=== PATIENT | female | born 1950 | race Caucasian/White ===

== ENCOUNTER 2019-01-23 11:14 | Emergency (ER) | payer OTHER ==
[~2019-01-23] VITALS: Ht 160 cm; Wt 63.5 kg
[2019-01-23] MEDS ORDERED: LISINOPRIL10 MG PO (11:29)
[2019-01-23] MEDS ORDERED: NORVASC5 MG PO (11:29)
[2019-01-23] MEDS ORDERED: CYMBALTA20 MG PO (11:30)
[2019-01-23] MEDS ORDERED: NEXIUM40 MG PO (11:30)
[2019-01-23] MEDS ORDERED: TOPROL XL100 MG PO (11:30)
[2019-01-23 11:47] LABS: ABSOLUTE BASOPHILS 0.1 thou/uL (0.0-0.2); ABSOLUTE EOSINOPHILS 0.4 thou/uL (0.0-0.7); ABSOLUTE LYMPHOCYTES 2.1 thou/uL (0.8-5.3); ABSOLUTE MONOCYTES 0.5 thou/uL (0.0-1.2); ABSOLUTE NEUTROPHILS 4.4 thou/uL (1.6-8.1); BASOPHILS 1.1 %; EOSINOPHILS 5.1 %; HEMATOCRIT 37.6 % (37.0-47.0); HEMOGLOBIN 12.4 gm/dL (12.0-15.0); LYMPHOCYTES 27.5 %; MCH 28.8 pg (26.0-34.0); MCV 87.4 fL (80.0-100.0); MONOCYTES 7.1 %; MPV 8.1 fl. (7.2-11.1); NUCLEATED RBCS 0 /100WBC; PLATELET COUNT* 390 thou/uL (150-400); POLYS 59.2 %; RDW-CV 13.9 % (10.5-14.5); WBC 7.5 thou/uL (4.0-11.0)
[2019-01-23 12:05] LABS: CALCIUM 9.4 mg/dL (8.5-10.1); CREATININE 1.1 mg/dL (0.6-1.3)
[2019-01-23 12:10] LABS: ACETAMINOPHEN < 2 ug/mL (10-30); ALBUMIN 4.1 g/dL (3.4-5.0); ALCOHOL < 10 mg/dL (<10); SALICYLATE < 2.8 mg/dL (2.8-20.0); TOTAL BILIRUBIN 0.5 mg/dL (<0.1-1.0); TOTAL PROTEIN 7.2 g/dL (6.4-8.2)
[2019-01-23 13:04] LABS: URINE BILIRUBIN NEGATIVE (Negative); URINE BLOOD NEGATIVE (Negative); URINE CLARITY CLEAR; URINE COLOR YELLOW; URINE GLUCOSE-RANDOM NEGATIVE (Negative); URINE KETONES NEGATIVE (Negative); URINE LEUKOCYTES-REFLEX 1+ (Negative); URINE NITRITE-REFLEX NEGATIVE (Negative); URINE PROTEIN NEGATIVE (Negative); URINE SPECIFIC GRAVITY 1.015 (1.005-1.030); URINE UROBILINOGEN 0.2 E.U./dl (0.2-1.0)
[2019-01-23 13:11] LABS: AMP/METHAMP Negative (Negative); BARBITURATES Negative (Negative); BENZODIAZEPINES Negative (Negative); COCAINE Negative (Negative); METHADONE Negative (Negative); OPIATES Negative (Negative); PCP Negative (Negative); THC Negative (Negative)
[2019-01-23 13:18] LABS: BACTERIA-REFLEX 1-9 Few /HPF (None Seen); CASTS None Seen /LPF (None Seen); CRYSTALS None Seen /LPF (None Seen); MUCUS None Seen strn/LPF (None Seen); SQUAMOUS 0-3 Few /LPF (0-3); URINE RBC 0-2 Rare /HPF (0-2); URINE WBC-REFLEX 0-5 Rare /HPF (0-5)
[2019-01-23 19:55] VITALS: BP 121/76
--- NOTE | 2019-01-24 16:22 | NUR ---
[facility] ON [facility].TO SEE WHERE SHE HAD DISCHARGED TO. PER [facility] DOCUMENTATION, PT.WAS TRANSFERRED TO [facility]. INFORMED ANDREINA OF THIS.
== END 2019-01-23 20:01 ==
LOC: M.ERS 11:14
PROVIDERS: Emergency Medicine Emergency Medical Services
DX: F29 Unspecified psychosis not due to a substance or known physiological condition (principal); I10 Essential (primary) hypertension; M54.9 Dorsalgia, unspecified; G89.29 Other chronic pain; Z88.5 Allergy status to narcotic agent; Z88.8 Allergy status to other drugs, medicaments and biological substances